=== PATIENT | female | born 1945 | race Caucasian/White ===

== ENCOUNTER → 2021-12-15 | Outpatient (CLI) | payer MEDICARE, OTHER | LOC: COL.RAD 07:22 | DX: R10.31 Right lower quadrant pain (principal) | CPT/HCPCS: Q9967 ==

== ENCOUNTER 2023-06-21 11:47 | Emergency (ER) | payer MEDICARE, OTHER ==
[~2023-06-21] VITALS: Ht 5.1 cm; Wt 78.2 kg
[2023-06-21] MEDS ORDERED: cefTRIAXone 1 G in Water For Injection,Sterile 10 ML IV ONE (15:00)
[2023-06-21 15:35] VITALS: BP 121/82; PULSE 67
== END 2023-06-21 15:35 | disposition home or self-care (01) ==
LOC: COL.ER 11:47
DX: N39.0 Urinary tract infection, site not specified (principal)
CPT/HCPCS: J0696